=== PATIENT | female | born 1970 | race Two or more races ===

== ENCOUNTER 2022-08-16 12:00 | Emergency (ER) | payer OTHER ==
[~2022-08-16] VITALS: Ht 157.5 cm; Wt 75.7 kg
[2022-08-16 12:13] VITALS: BP 94/66
--- NOTE | 2022-08-16 12:24 | NUR ---
PHLEB AT BEDSIDE FOR BLOOD DRAW
--- NOTE | 2022-08-16 12:28 | NUR ---
SWAB FOR COVID19, RAPID INFLUENZA AND RAPID STREP SENT TO LAB
[2022-08-16] MEDS ORDERED: LIDOCAINE VISCOUS 2% UD 15 ML UDC MM ONE (12:30)
[2022-08-16] MEDS ORDERED: DEXAMETHASONE SOD PHOSPHATE 10 MG/ML VIAL IM ONE (12:30)
[2022-08-16] MEDS ORDERED: KETOROLAC TROMETHAMINE INJ 30 MG/ML VIAL IM ONE (12:30)
[2022-08-16] MEDS ORDERED: KETOROLAC TROMETHAMINE 15 MG/ML VIAL ONE (12:39)
[2022-08-16] MEDS ORDERED: DEXAMETHASONE SOD PHOSPHATE 10 MG/ML VIAL ONE (12:39)
[2022-08-16] MEDS ORDERED: LIDOCAINE VISCOUS 2% UD 15 ML UDC ONE (12:39)
[2022-08-16 13:38] LABS: MONOTEST NEGATIVE (NEGATIVE)
[2022-08-16] MEDS ORDERED: PENI500T PO (13:51)
[2022-08-16] MEDS ORDERED: BENZ1LOZ58 PO (13:51)
--- NOTE | 2022-08-16 13:57 | NUR ---
Patient discharged to home in stable condition. Written and verbal after care instructions given. Patient verbalizes understanding of instruction.
== END 2022-08-16 13:58 | disposition home or self-care (01) ==
LOC: ER 12:03
DX: J02.0 Streptococcal pharyngitis (principal); Z20.822 Contact with and (suspected) exposure to COVID-19; G35 Multiple sclerosis
CPT/HCPCS: 99284; 87426; 96372 ×2; 87804; 86308; 36415; 87880; J1100; J1885; C9803; 86403-TC

== ENCOUNTER 2022-10-05 10:10 | Emergency (ER) | payer OTHER ==
[~2022-10-05] VITALS: Ht 157.5 cm; Wt 72.6 kg
[~2022-10-05 10:10] MED LIST: BENZ1LOZ58 PO; PENI500T PO
--- NOTE | 2022-10-05 10:10 | NUR ---
PATIENT C/C ABD PAIN. A/O X 3
--- NOTE | 2022-10-05 10:31 | NUR ---
URINE SAMPLE COLLECTED AND SENT TO LAB
--- NOTE | 2022-10-05 10:36 | NUR ---
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
[2022-10-05 10:56] LABS: BASOPHILS % (AUTO) 0.2 % (0.0-2.0); EOSINOPHILS % (AUTO) 2.8 % (0.0-6.0); HEMATOCRIT 39 % (33-45); LYMPHOCYTES # (AUTO) 1.3 K/uL (0.8-4.8); LYMPHOCYTES % (AUTO) 25.2 % (20.0-44.0); MEAN CORPUSCULAR HGB CONC 33 g/dl (31.0-36.0); MEAN CORPUSCULAR VOLUME 90 fL (82-100); MONOCYTES # (AUTO) 0.4 K/uL (0.1-1.30); MONOCYTES % (AUTO) 8.3 % (2.0-12.0); NEUTROPHILS # (AUTO) 3.2 K/uL (1.8-8.9); NEUTROPHILS % (AUTO) 63.5 % (43.0-81.0); PLATELET COUNT (AUTO) 263 K/uL (150-450); RED BLOOD CELL COUNT(AUTO) 4.34 MIL/uL (4.0-5.2); WHITE BLOOD COUNT (AUTO) 5.1 K/uL (4.3-11.0)
[2022-10-05 11:15] LABS: BILIRUBIN,URINE NEGATIVE (NEGATIVE); COLOR,URINE YELLOW (YELLOW); LEUKOCYTE ESTERASE ,URINE NEGATIVE (NEGATIVE); NITRITE, URINE POSITIVE (NEGATIVE); PROTEIN,URINE NEGATIVE (NEGATIVE); UGLUCOSE NEGATIVE (NEGATIVE); UROBILINOGEN,URINE 0.2 EU/dL (0.2)
[2022-10-05 11:16] LABS: BACTERIA,URINE Few /HPF (None Seen); RBC,URINE 0-2 /HPF (0-2); SQUAMOUS EPITHELIAL CELL,UR Few /HPF (None Seen)
[2022-10-05 11:43] LABS: POTASSIUM 3.7 mmol/L (3.5-5.1)
[2022-10-05 11:44] LABS: CALCIUM, SERUM 8.5 mg/dL (8.5-10.1)
[2022-10-05 11:45] LABS: ALBUMIN 3.5 g/dL (3.4-5.0); BILIRUBIN,DIRECT 0.2 mg/dL (0.0-0.2); BILIRUBIN,TOTAL 0.5 mg/dL (0.2-1.0); CREATININE 0.8 mg/dL (0.6-1.3); TOTAL PROTEIN, SERUM 7.1 g/dL (6.4-8.2)
[2022-10-05] MEDS ORDERED: IV NS 0.9% 1,000 ML IV ONE (12:00)
[2022-10-05] MEDS ORDERED: CEFTRIAXONE 1 G in IV D5W 50 ML IV ONE (12:00)
[2022-10-05] MEDS ORDERED: KETOROLAC TROMETHAMINE INJ 30 MG/ML VIAL IV ONE (12:00)
[2022-10-05] MEDS ORDERED: KETOROLAC TROMETHAMINE 15 MG/ML VIAL ONE (12:22)
[2022-10-05] MEDS ORDERED: CEFTRIAXONE 1GM BAG (ER ONLY) 50 ML IV ONE (12:34)
[2022-10-05] MEDS ORDERED: NITR100C6 PO (13:15)
[2022-10-05] MEDS ORDERED: ONDA4TAB5 PO (13:15)
[2022-10-05] MEDS ORDERED: IBUP-1955 PO (13:15)
--- NOTE | 2022-10-05 13:28 | NUR ---
IV removed. Catheter intact and site benign. Pressure and 4x4 applied to site. No bleeding noted.Patient discharged to home in stable condition. Written and verbal after care instructions given. Patient verbalizes understanding of instruction.
[2022-10-05 13:29] VITALS: BP 107/67
== END 2022-10-05 13:29 | disposition home or self-care (01) ==
LOC: ER 10:14
DX: N39.0 Urinary tract infection, site not specified (principal); R10.2 Pelvic and perineal pain; R11.2 Nausea with vomiting, unspecified; E03.9 Hypothyroidism, unspecified; Z79.899 Other long term (current) drug therapy
CPT/HCPCS: 99285; 74176; 96365; 96375; 85025; 80048; 87086; 83690; 80076; 84703; 81001; 36415; A4223; J0696; J1885

== ENCOUNTER 2022-10-19 15:55 | Emergency (ER) | payer OTHER ==
[~2022-10-19] VITALS: Ht 157.5 cm; Wt 76.2 kg
[~2022-10-19 15:55] MED LIST changes: +IBUP-1955 PO; +NITR100C6 PO; +ONDA4TAB5 PO
--- NOTE | 2022-10-19 17:00 | NUR ---
UA SENT IN TRIAGE
--- NOTE | 2022-10-19 17:05 | NUR ---
RECEIved pt 51 yrs female came from home with lt flank pain on po antibotic here for admin inpt for iv antibotic
--- NOTE | 2022-10-19 17:25 | NUR ---
blood drow by lab tach
[2022-10-19] MEDS ORDERED: IV NS 0.9% 1,000 ML BAG IV ONE (17:30)
[2022-10-19 17:52] LABS: BASOPHILS % (AUTO) 0.3 % (0.0-2.0); EOSINOPHILS % (AUTO) 5.1 % (0.0-6.0); HEMATOCRIT 39 % (33-45); LYMPHOCYTES # (AUTO) 1.4 K/uL (0.8-4.8); LYMPHOCYTES % (AUTO) 13.5 % (20.0-44.0); MEAN CORPUSCULAR HGB CONC 33 g/dl (31.0-36.0); MEAN CORPUSCULAR VOLUME 88 fL (82-100); MONOCYTES # (AUTO) 0.6 K/uL (0.1-1.30); MONOCYTES % (AUTO) 6.1 % (2.0-12.0); NEUTROPHILS # (AUTO) 7.6 K/uL (1.8-8.9); PLATELET COUNT (AUTO) 387 K/uL (150-450); RED BLOOD CELL COUNT(AUTO) 4.44 MIL/uL (4.0-5.2); WHITE BLOOD COUNT (AUTO) 10.1 K/uL (4.3-11.0)
[2022-10-19] MEDS ORDERED: ONDANSETRON HCL/PF 4 MG/2 ML VIAL IVP ONE (18:00)
[2022-10-19] MEDS ORDERED: KETOROLAC TROMETHAMINE INJ 30 MG/ML VIAL IV ONE (18:00)
[2022-10-19 18:03] LABS: CALCIUM, SERUM 9.2 mg/dL (8.5-10.1); POTASSIUM 3.8 mmol/L (3.5-5.1)
--- NOTE | 2022-10-19 18:11 | NUR ---
luciano sent to lab
[2022-10-19 18:13] LABS: BILIRUBIN,URINE NEGATIVE (NEGATIVE); COLOR,URINE YELLOW (YELLOW); LEUKOCYTE ESTERASE ,URINE NEGATIVE (NEGATIVE); NITRITE, URINE NEGATIVE (NEGATIVE); PH,URINE 5.5 (5.0-8.0); PROTEIN,URINE NEGATIVE (NEGATIVE); UGLUCOSE NEGATIVE (NEGATIVE); UROBILINOGEN,URINE 0.2 EU/dL (0.2)
[2022-10-19 18:16] LABS: ALBUMIN 3.4 g/dL (3.4-5.0); BILIRUBIN,DIRECT 0.1 mg/dL (0.0-0.2); BILIRUBIN,TOTAL 0.3 mg/dL (0.2-1.0); TOTAL PROTEIN, SERUM 7.5 g/dL (6.4-8.2)
--- NOTE | 2022-10-19 18:20 | NUR ---
ABDOMINALE US DONE AT BED SIDE
[2022-10-19] MEDS ORDERED: MORPHINE SULFATE INJ 10 MG/ML DISP.SYRIN IV ONE (18:30)
[2022-10-19] MEDS ORDERED: KETOROLAC TROMETHAMINE 15 MG/ML VIAL ONE (18:55)
[2022-10-19] MEDS ORDERED: ONDANSETRON HCL/PF 4 MG/2 ML VIAL ONE ×2 (18:55→21:51)
[2022-10-19] MEDS ORDERED: MORPHINE SULFATE INJ 4 MG/ML DISP.SYRIN ONE (18:55)
--- NOTE | 2022-10-19 19:26 | NUR ---
HAND OFF LUIS E BATEMAN
[2022-10-19] MEDS ORDERED: IOHEXOL-300 100 ML VIAL IV ONE (19:30)
[2022-10-19] MEDS ORDERED: IV NS 0.9% 250 ML IV ONE (19:31)
[2022-10-19 21:23] VITALS: BP 121/72
[2022-10-19] MEDS ORDERED: ONDA4TAB5 PO (21:25)
[2022-10-19] MEDS ORDERED: ONDANSETRON HCL/PF 4 MG/2 ML VIAL IV ONE (22:00)
--- NOTE | 2022-10-19 22:08 | NUR ---
Patient discharged to home in stable condition. Written and verbal after care instructions given. Patient verbalizes understanding of instruction. IV removed. Catheter intact and site benign. Pressure and 4x4 applied to site. No bleeding noted.
== END 2022-10-19 22:08 | disposition home or self-care (01) ==
LOC: ER 15:56
DX: K57.30 Diverticulosis of large intestine without perforation or abscess without bleeding (principal); R10.32 Left lower quadrant pain; G35 Multiple sclerosis; Z79.899 Other long term (current) drug therapy; R11.2 Nausea with vomiting, unspecified; R50.9 Fever, unspecified; Z98.890 Other specified postprocedural states; Z90.49 Acquired absence of other specified parts of digestive tract; Z20.822 Contact with and (suspected) exposure to COVID-19
CPT/HCPCS: 99285; 74177; 76856; 96374; 96375; 96361; 87426; 96376; 76770; 85025; 80048; 87040 ×2; 83605; 83690; 80076; 84703; 81003; 36415; 87491; 87591; J2270 ×2; J2405 ×2; J7030; J7050; Q9967; J1885; C9803